=== PATIENT | female | born 1990 | race Caucasian/White ===

== ENCOUNTER 2024-08-02 00:51 | Emergency (ER) | payer BC, SELFPAY ==
[2024-08-02 00:52] VITALS: BP 121/79
[2024-08-02 01:03] VITALS: BMI 33.6
--- NOTE | 2024-08-02 01:05 | ED.GENMED ---
History of Present Illness
General
Chief Complaint: Abdominal Pain
Source: patient
Exam Limitations: none
Time Seen by Provider: 08/02/24 01:00
Nursing documentation reviewed up to this point in time: agreed with
History of Present Illness
History of Present Illness:
33-year-old female with past medical history of endometriosis, ovarian cyst, GERD, presents to the emergency department today with concerns of pelvic pain. Patient reports that this started around an hour ago. Patient reports that she fell asleep
on the couch and then woke up and went to go use the bathroom. After she urinated, she noticed pain in her pelvis. Patient reports that the pain was sudden onset and severe at this time and she described as cramping. Patient is not able to
compare it to the pain she has had in the past. She does have a history of endometriosis but states that this pain feels different. Her last menstrual period was June 30. Patient denies any vaginal discharge, any vaginal bleeding. Patient
denies any flank pain. Patient denies any dysuria. Patient does note that she has 3 days, she has noticed a cloudy color to her urine. She has reports that on the way to the emergency department, she noticed the pain get better and now she just
feels it occasionally and states that it will come and go. Patient reports that the pain is very centralized but occasionally will radiate to the right. She denies any fevers or chills. She denies any diarrhea. She denies any rectal
bleeding/hematochezia. She has no other history of intra-abdominal surgery other than endometriosis removal with Dr. Brower. She currently follows with [facility].
Past History
Past History
ED Past Medical History: None and Other (pericarditis, Small pericardial effusion, Endometriosis); Negative HTN, Hypercholesterolemia or NIDDM
ED Past Surgical History: Other (Cyst removed from left wrist)
Social History
Tobacco: Non-smoker
Alcohol: None
Drug: None
Personal:
Living: with family
Employment: Employed
Review of Systems
Review of Systems
All Other Systems: ROS reviewed and negative except as documented in HPI and ROS
Phy Exam
Physical Exam
Physical Exam:
General: Patient is well appearing and in no acute distress; non-toxic
Skin: Warm and dry, no rashes or lesions
Head: Normocephalic, atraumatic
Eyes: Sclera non-icteric. EOMs intact.
Cardiac: Regular rate and rhythm, no murmurs
Peripheral Vascular: No lower extremity swelling or edema
Pulm: Normal respiratory effort, no wheezes, rales, or rhonchi
Abdomen: Abdomen is soft, non-tender and non-distended
No adnexal tenderness
Neuro: CN II-XII intact, no focal neurologic deficits.
Psychiatric: Appropriate mood and affect.
Course
Orders/Labs/Results
Orders:
Orders
08/02/24 01:01
IV Insert/Care/Rem.- Treatment PRN
08/02/24 01:02
Test Result ONCE
08/02/24 01:10
Complete Blood Count/With Diff Urgent
Comprehensive Metabolic Panel Urgent
HCG, Serum Qualitative Screen Urgent
Comment: Notify provider if positive test present
Lipase Urgent
08/02/24 01:18
US Transvaginal [US Pelvis W Transvag Combined] Urgent
Comment:
Reason For Exam: pelvic pain
08/02/24 01:25
0.9% Sodium Chloride 500 ml [Nss] 500 ml IV BOLUS
Ibuprofen [Motrin] 400 mg PO NOW STA
08/02/24 03:13
Urinalysis Reflex To Culture Urgent
Date Specimen was Collected: 08/02/24
Time Specimen was Collected: 01:02
Urine Microscopic Reflex Cult Urgent
Urine Culture Urgent
DARRIAN Source: U
Specimen Description:
Date Specimen was Collected: 08/02/24
Time Specimen was Collected: 01:02
Abnormal Lab Results
08/02/24 08/02/24
01:10 03:13
Absolute Monos (auto) 0.9 H 10^3/uL
(0.1-0.6)
Monocytes % 10.6 H %
(1.7-9.3)
Chloride 108 H mmol/L
(98-107)
BUN 31 H mg/dl
(7-17)
Glucose 101 H mg/dl
(70-99)
Urine Ketones 1+ A
(Negative)
Leukocyte Esterase Rfl 1+ A
(Negative)
Urine RBC 3-6 A /HPF
(0-2)
Urine Bacteria (Reflex) Few A
(Negative)
08/02/24 01:10
08/02/24 01:10
Vital Signs
Initial and Last Documented VS:
Initial Vital Signs
Temp Pulse Resp BP Pulse Ox
97.5 F 70 18 121/79 98
08/02/24 00:52 08/02/24 00:52 08/02/24 00:52 08/02/24 00:52 08/02/24 00:52
Last Documented Vital Signs
Temp Pulse Resp BP Pulse Ox
97.5 F 68 16 104/60 99
08/02/24 00:52 08/02/24 01:48 08/02/24 03:20 08/02/24 03:14 08/02/24 01:07
MDM/Problems Addressed
Differential Diagnosis Includes:
bladder spasm, UTI, ovarian cyst, ovarian torsion, gastroenteritis
MDM/Problems Addressed:
33-year-old female with a past medical history of GERD presents emergency department today with concerns of pelvic pain. Patient reports that she fell asleep on the couch and woke up with the urge to use the bathroom. After she urinated, she had
sharp pelvic pain. This was sharp for a few minutes and notes a constant dull ache. Patient reports the pain has been improving. She notes that is primarily central in her pelvis will occasionally radiate to the right side. Physical exam she is
well-appearing in no acute distress her abdomen soft nontender, there is no tenderness McBurney's point. Will check ultrasound of the pelvis and urinalysis, will reassess.
On reassessment, patient is feeling well. Pain completely resolved without intervention. She is pain-free asymptomatic, no burning with urination, no urinary hesitancy or urgency. On reexamination, she remains without tenderness in the abdomen.
CBC unremarkable, CMP shows elevation BUN to creatinine ratio, patient given IV fluids. Ultrasound does show a cyst on the left but is otherwise negative for any cyst on the right, no signs of torsion, normal flow. Considering patient's pain-free,
did not feel CAT scan is needed for further evaluation of symptoms, doubt early appendicitis. Discussed return precautions. Suspect pain related to bladder spasm versus UTI versus menstruation as patient is due for her period. Patient stable for
discharge.
Chronic conditions affecting care:
GERD, endometriosis
*Pulse Oximetry
Patient hypoxic: no
*Critical Care Note
Total Time (30-74mins, 75-104mins- exclusive of procedures): Not Applicable
Data Reviewed
Review of Other/Old Records Reveals: Records (Reviewed ER physician documentation from 01/24/2020, patient seen for chest pain, was treated for pericarditis, discharge with unremarkable workup, reviewed operative report from 12/22/2019, patient seen
for endometriosis pelvis)
Source: patient and records
Patient Management
Escalation/DeEscalation of care consider admission/obs:
Admit not indicated, patient stable for discharge
Update Note
Update Note:
3:05 am-- Patient is pain free. Will hold off on CT scan at this time. Abdomen remains soft and non-tender. Will check urine.
3:22 am-- Patient is still asymptomatic no abdominal pain, no dysuria, requesting to go home, did discuss getting CAT scan however since patient is asymptomatic and ultrasound reassuring, I think this is reasonable to forego this study. Patient
would like to be discharged prior to urine results coming back. Will call patient with results prior to end of shift.
ED Attending Note
-
Portions of this chart may have been created with voice recognition software.� Occasional wrong word or��sound alike� substitutions may have occurred due to the inherent limitations of voice recognition software.
Discharge Plan
Departure
Patient Disposition: Home (Routine Discharge)
Date of Disposition: 08/02/24
Time of Disposition: 03:25
Patient with high blood pressure during this ER visit?: No
Condition: Good
Discharge Problem:
Bladder spasm, Pelvic pain
Instructions: Pelvic pain - ED discharge instructions
Prescriptions:
No Action
ascorbic acid (vitamin C) [Vitamin C] 1,000 MG tablet
1,000 mg PO HS
ibuprofen [Advil] 200 MG tablet
400 mg PO BID
dz-hlr-LC-Tl-Yb-tnlhxez-lutein 1 EACH tablet
1 tab PO HS
Probiotic 1 EACH capsule
1 ea PO HS
Evening [place] Oil
1,300 mg PO HS
Vitamin D3 (cholecalciferol):
5,000 units PO HS
Referrals:
Anna Pedersen MD [Family Provider] -
Activity Restrictions/Additional Instructions:
PLEASE RETURN TO THE EMERGENCY DEPARTMENT SHOULD YOU DEVELOP FEVERS OR CHILLS, ACUTE RETURN OF YOUR SYMPTOMS, VAGINAL DISCHARGE, FLANK PAIN, BLOOD IN YOUR URINE, BURNING WITH URINATION, OR ANY OTHER SIGNS OR SYMPTOMS WORRISOME TO YOU.
Please follow-up with your primary care provider.
Interventions
Interventions:
*Risk Screen - Suicide Last Done: 08/02/24 00:56
*General Assessment Last Done: 08/02/24 00:56
*Neglect/Abuse Screening Last Done: 08/02/24 01:01
*ED- Fall Risk Assessment Last Done: 08/02/24 01:09
*ED COVID-19 Vaccine History Last Done: 08/02/24 00:56
*Nursing Disposition Last Done: 08/02/24 03:30
VE-Xxnyfx-Rtpcdqkqyj Assessment Last Done: 08/02/24 01:07
Discharge Date and Time
Discharge Date/Time: 08/02/24 03:31
Print Language: AFGHAN
[2024-08-02 01:07] VITALS: BP 129/77
[2024-08-02 01:16] LABS: % Basophils 0.4 % (0-2); % Eosinophils 4.6 % (0-6); % Immature Granulocytes 0.1 % (0-0.5); % Monocytes 10.6 % (1.7-9.3); % Neutrophils 47.3 % (42.2-75.2); Absolute Eosinophils 0.4 10^3/uL (0-0.7); Absolute Monocytes 0.9 10^3/uL (0.1-0.6); Absolute Neutrophils 3.9 10^3/uL (1.4-6.5); Hematocrit 41.1 % (37.0-47.0); Hemoglobin 14.3 g/dL (12.0-16.0); Mean Corp Hgb Conc. 34.8 g/dL (33.0-37.0); Mean Corpuscular Hgb 29.8 pg (27.0-31.0); Mean Corpuscular Volume 85.6 fL (81.0-99.0); Mean Platelet Volume 9.8 fL (7.4-10.4); Nucleated Red Blood Cells % 0 %; Platelet Count 274 10^3/uL (130-400); White Blood Cell Count 8.2 10^3/uL (4.8-10.8)
[2024-08-02 01:26] LABS: HCG, Serum Qualitative Screen Negative
[2024-08-02] MEDS: MOTRIN 400 MG PO (01:30)
[2024-08-02] MEDS: NSS 500 IV (01:31)
[2024-08-02 01:37] LABS: ALT (SGPT) 29 U/L (0-35); AST (SGOT) 32 U/L (14-36); Albumin 4.7 g/dl (3.5-5.0); Alkaline Phosphatase 56 U/L (38-126); Blood Urea Nitrogen 31 mg/dl (7-17); Calcium 10.2 mg/dl (8.4-10.2); Carbon Dioxide 25 mmol/L (22-30); Chloride 108 mmol/L (98-107); Estimated Creatinine Clearance 113 ml/min; Glucose 101 mg/dl (70-99); Lipase 141 U/L (23-300); Potassium 4.2 mmol/L (3.5-5.1); Sodium 139 mmol/L (135-145); Total Bilirubin 0.4 mg/dl (0.2-1.3); Total Protein 7.6 g/dl (6.3-8.2); eGFR > 60.00
[2024-08-02 03:14] VITALS: BP 104/60
[2024-08-02 03:24] LABS: Urine Albumin Negative (Neg - Trace); Urine Bilirubin Negative (Negative); Urine Character Clear (Clear); Urine Color Yellow; Urine Glucose Negative (Negative); Urine Ketone 1+ (Negative); Urine Leukocyte 1+ (Negative); Urine Nitrite Negative (Negative); Urine Occult Blood Negative (Negative); Urine Urobilinogen Negative (Neg - 1+)
[2024-08-02 03:50] LABS: Urine Bacteria Few (Negative)
== END 2024-08-02 03:31 | disposition home or self-care (01) ==
LOC: EMR 00:51
PROVIDERS: Physician Assistant; EMERGENCY PHYSICIAN Emergency Medicine; FAMILY PHYSICIAN Family Medicine
DX: R10.2 Pelvic and perineal pain (principal); N32.89 Other specified disorders of bladder; N80.9 Endometriosis, unspecified; N83.202 Unspecified ovarian cyst, left side; K21.9 Gastro-esophageal reflux disease without esophagitis; Z88.1 Allergy status to other antibiotic agents; Z88.5 Allergy status to narcotic agent; Z88.8 Allergy status to other drugs, medicaments and biological substances
CPT/HCPCS: 99284; 96360; 76830; 76856; 80053; 81003; 81015; 83690; 84703; 85025; 87086